=== PATIENT | male | born 2005 | race Two or more races ===

== ENCOUNTER 2023-07-15 23:14 | Emergency (ER) | payer OTHER ==
[~2023-07-15] VITALS: Ht 182.9 cm; Wt 80.7 kg
[2023-07-16 01:10] LABS: HEMATOCRIT 45.1 % (39.0-48.0); HEMOGLOBIN 15.4 g/dL (13-16.00); MEAN CELL VOLUME 94.2 fL (80.0-100.00); MEAN CORPUSCULAR HEMOGLOBIN 32.3 pg (27.00-32.0); MEAN CORPUSCULAR HGB CONC 34.3 g/dl (32.0-36.0); RED BLOOD COUNT 4.79 M/uL (4.00-6.00); RED CELL DISTRIBUTION WIDTH 13.3 % (11.5-14.5)
[2023-07-16 01:22] LABS: PLATELET COUNT 124 K/uL (150-450)
== END 2023-07-16 03:54 | disposition home or self-care (01) ==
LOC: ER 23:15
DX: R50.9 Fever, unspecified (principal); Z20.822 Contact with and (suspected) exposure to COVID-19